=== PATIENT | male | born 1975 | race Native Hawaiian/Other Pacific Islander ===

== ENCOUNTER 2017-09-24 21:06 | Emergency (ER) | payer OTHER ==
--- NOTE | 2017-09-24 21:16 | ED Physician Documentation ---
PD HPI UPPER EXT INJURY - Stated complaint Stated Complaint: LT THUMB LAC - Chief complaint Chief Complaint: Laceration - History obtained from History obtained from: Patient - History of Present Illness Location: Left, Finger (thumb) Type of injury: Laceration Where injury occurred: Home Timing - onset: Enter time (19:30) Timing - details: Abrupt onset Associated symptoms: No: Weakness, Numbness Similar symptoms before: Has not had sx before Recently seen: Not recently seen - Additonal information Additional information: while preparing dinner, knife slipped and he sustained a left thumb laceration on knife's edge. Patient is right-hand dominant. Review of Systems Skin: reports: Laceration (s) PD PAST MEDICAL HISTORY - Past Medical History Past Medical History: No - Present Medications Home Medications: Ambulatory Orders Medication Instructions Recorded Confirmed Losartan [Cozaar] 50 mg PO DAILY 09/24/17 09/24/17 Omeprazole 20 mg PO DAILY 09/24/17 09/24/17 - Allergies Allergies/Adverse Reactions: Allergies Allergy/AdvReac Type Severity Reaction Status Date / Time No Known Drug Allergies Allergy Verified 09/24/17 21:12 PD ED PE NORMAL - Vitals Vital signs reviewed: Yes - General General: Alert and oriented X 3, No acute distress, Well developed/nourished - Extremities Extremities: No tenderness to palpate, Normal ROM s pain - Neuro Neuro: No motor deficit, No sensory deficit PD ED PE EXPANDED - Extremities Extremities: Other (1 cm linear laceration left thumb adjacent to lateral nail fold) Results - Vitals Vitals: Vital Signs - 24 hr 09/24/17 09/24/17 21:09 22:15 Temperature 36.6 C 36.6 C Heart Rate 77 74 Respiratory 18 18 Rate Blood Pressure 142/91 H 135/82 H O2 Saturation 98 95 Oxygen O2 Source Room air Procedures - Laceration (location) Finger left Length in cm: 1 Wound type: Linear Neurovascular status: Sensory intact, Motor intact, Vascular intact Tendon involvement: Tendon intact Anesthesia: Lidocaine 1% Wound Preparation: Irrigated copiously NS Skin layer closure: Nylon, Interrupted (one single-interrupted suture), Running , Size #-0 - enter number (5-0) Other: Patient tolerated well, No complications, Neurovascular intact, Dressing applied, Tetanus booster given PD MEDICAL DECISION MAKING - ED course Complexity details: considered differential, d/w patient Departure - Departure Disposition: 01 Home, Self Care Clinical Impression: Laceration Condition: Good Instructions: ED Laceration Ext Sutr Stap Tape Follow-Up: JOHN Das [Provider Group] (5-7 days for removal of sutures (stitches)) Discharge Date/Time: 09/24/17 22:28
[2017-09-24] MEDS ORDERED: LIDOCAINE 1% 2 ML VIAL SUBQ STA (21:28)
[2017-09-24] MEDS ORDERED: TETANUS/DIPHTHERIA/PERTUSSIS 0.5 ML SYRINGE IM ONE (21:39)
[2017-09-24] MEDS ORDERED: BACITRACIN OINT TOP STA (22:03)
[2017-09-24 22:16] VITALS: BP 135/82
== END 2017-09-24 22:28 | disposition home or self-care (01) ==
LOC: ED 21:06
DX: S61.012A Laceration without foreign body of left thumb without damage to nail, initial encounter (principal); W26.0XXA Contact with knife, initial encounter; Y93.G1 Activity, food preparation and clean up; Y92.010 Kitchen of single-family (private) house as the place of occurrence of the external cause; Z23 Encounter for immunization
CPT/HCPCS: 12001; 90471; 90715; 99282; 99283; A9270